=== PATIENT | male | born 1970 | race Hispanic/Latino ===

== ENCOUNTER 2018-05-16 10:51 | Day surgery (SDC) | payer MEDICARE, MEDICAID, SELFPAY ==
[2018-05-16] VITALS (8 sets, daily range): BP systolic 85–133; BP diastolic 53–80; PULSE 65–74; RESP 16; TEMP 36.1–36.9; O2SAT 62–99; BMI 32.2
[2018-05-16] MEDS: Cefazolin 2 GM in 0.9% Normal Saline 100 ML IV (13:23)
[2018-05-16] MEDS: Bupivacaine Mpf 0.5% 30 ML VIAL (13:40)
--- NOTE | 2018-05-16 14:15 | RAD_ITS ---
STUDY: X-RAY - LUMBAR SPINE REASON FOR EXAM: Male, 47 years old. Spinal cord stimulator placement. TECHNIQUE: 12 coned-down view(s) of the lumbar spine were obtained for spinal cord placement. 4 minutes and 6 seconds of fluoroscopy. COMPARISON: None FINDINGS: Intraoperative imaging provided for spinal cord stimulator placement. RAD/Lumbar Spine 2 or 3 Views IMPRESSION: Intraoperative fluoroscopic services provided for spinal cord stimulator placement. Electronically Signed: Morgan Trujillo MD at 15:57 EDT Tel [phone], Service support ,
[2018-05-16] MEDS: Bacitracin 500 UNITS/GM PACKET (15:11)
--- NOTE | 2018-05-16 15:52 | PCM.OPRPT ---
Problem List (1) Degeneration of intervertebral disc of lumbosacral region Status: Chronic (2) Radiculopathy of lumbosacral region Status: Chronic (3) Spinal stenosis of lumbosacral region Status: Chronic (4) Pain, postoperative, chronic Status: Chronic Report of Operation Date of Procedure: 05/16/18 Pre-Operative Diagnosis: Lumbosacral radiculopathy, lumbosacral degenerative disc disease, lumbosacral spinal stenosis, chronic postoperative pain Post-Operative Diagnosis: Lumbosacral radiculopathy, lumbosacral degenerative disc disease, lumbosacral spinal stenosis, chronic postoperative pain Surgery/Procedure Performed:: 1. Spinal cord stimulator thoracolumbar leads placement x2 #2 spinal cord stimulator Medtronic entellus generator placement #3 spinal cord stimulator generator pocket creation at the left gluteal region #4 spinal cord stimulator simple programming Description of Surgical Findings:: PROCEDURES: 1. Spinal cord stimulator thoracolumbar leads placement x2 #2 spinal cord stimulator Medtronic intellus generator placement #3 spinal cord stimulator generator pocket creation at the left gluteal region #4 spinal cord stimulator simple programming PREOPERATIVE DIAGNOSES: Lumbosacral radiculopathy, lumbosacral degenerative disc disease, lumbosacral spinal stenosis, chronic postoperative pain POSTOPERATIVE DIAGNOSES: Lumbosacral radiculopathy, lumbosacral degenerative disc disease, lumbosacral spinal stenosis, chronic postoperative pain ANESTHESIA: MAC COMPLICATIONS: None BLOOD LOSS: Minimal Implanted device: Spinal cord stimulator lead [id number] lot number [id number], lead #2 lot number [id number], Medtronic spinal cord stimulator generator intellus serial number [id number] PROCEDURE IN DETAIL: History and physical today was reviewed. Risks and benefits of procedure explained. The patient understood, agreed to procedure, informed consent was obtained. IV inserted per routine protocol. The patient was taken to the operating room, placed in the prone position with a pillow positioned underneath the abdomen. A 2 g of Ancef IV piggyback was infused per anesthesia. The lower back and left gluteal area was prepped and draped in a sterile fashion using iodine x3. The C-arm was brought in position for AP view at the L3-4 vertebral bodies under direct visualization fluoroscopy on a true AP view the L3-4 interlaminar space was identified skin and subcutaneous tissue and size approximately 10 cc of a mix of 2% lidocaine and 0.25% Marcaine using a 25-gauge regular needle followed by a 25-gauge 3-1/2 inch spinal needle towards the interlaminar space at L3-4, the skin and subcutaneous tissue were then anesthetized and using an 11-gauge blade was then taken down to the skin and subcutaneous tissue using a 14-gauge 3-1/2 inch Touhy needle provided by the [employer] kit the needle was passed through the skin towards the interlaminar space at L3-4 and a paramedian approach the needle was then advanced under direct visualization fluoroscopy towards the interlaminar space at L3-4 [id number] technique was then carried to air towards the interlaminar space at L3-4 once the tip of the needle was in the epidural space and loss of resistance was encountered to air and after confirmation of AP as well as oblique view of the spinal cord stimulator lead was then advanced under direct visualization fluoroscopy to be at the tip of the lead at T8 and the bottom of the lead around mid T10 after confirmation of AP as well as lateral view to confirm correct placement of the lead in the posterior compartment of the epidural space the previous procedure was then repeated to a level above at L2-3 interlaminar space the second lead was then inserted under direct visualization with fluoroscopy to be at the mid T9 and mid T11 area the leads were were then connected to the external neurostimulator and patient was then awakened to confirm satisfactory coverage of the painful area once satisfactory coverage was then achieved the stylette of each needle was then removed and the skin and subcutaneous tissue on to the left of the paramedian needles was then taken anesthetized with a total of 10 cc of the previous mixture of 0.25% Marcaine and 2% lidocaine using a 25-gauge regular needle the incision was then taken down through the skin and subcutaneous tissue towards the fascia making sure hemostasis was then maintained via cautery the spinal cord stimulator leads were then passed through the above incision and secured using the bitewing and sutured down with a 2-0 nylon to the fascia at that level the spinal cord stimulator leads were then tunneled via a tunneler provided by the [employer] kit towards the previously incised spinal cord stimulator battery at the left gluteal region skin and subcutaneous tissue were anesthetized with approximately 10 cc of a mix of 2% lidocaine and 0.25% Marcaine using a 25 gauge regular needle, skin and subcutaneous tissue was then taken down with the 11-gauge blade hemostasis was maintained with Bovie and direct pressure the incision was then taken down to the fascia and the battery was then visualized the 2-0 nylon sutures that were the spinal cord stimulator leads the upper lead was then marked the new until spinal cord stimulator battery was then provided Via [employer] kit the battery was then reattached of the spinal cord stimulator make ensure that the top lead is attached to the top position from 0-7 electrodes and the bottom from 8-15 electrodes once impedance was then checked to be in the proper average number the intellus battery was then inserted into the pocket and impedance with when checked again the pocket was then inspected to confirm hemostasis in place, the entellus battery was then secured to the fascia using a 2-0 nylon to the upper and lower eyes of the battery confirming an upward writing of the intellus facing posterior, once complete confirmation the battery was then placed in the position and the the mid paramedian and the gluteal incisions were then closed primarily through a 3-0 Vicryl in a running fashion followed by a 4-0 Vicryl to the skin, hemostasis was then maintained during the procedure the skin was then covered with a Steri-Strips and bacitracin patient was then returned into the supine position in a stable condition and returned to recovery in a stable condition patient experienced no sinus symptoms of intrathecal or intravascular injection patient experienced no paresthesia the procedure was completed without any apparent difficulty any complication the patient appeared to tolerate well ESTIMATED BLOOD LOSS: Minimal less than 25 mL ASSESSMENT AND PLAN: This is a 47-year-old male with lumbosacral radiculopathy lumbosacral degenerative disc disease lumbosacral spinal stenosis, chronic postoperative pain status post1. Spinal cord stimulator thoracolumbar leads placement x2 #2 spinal cord stimulator Medtronic intellus generator placement #3 spinal cord stimulator generator pocket creation at the left gluteal region #4 spinal cord stimulator simple programming patient will continue his current medications a prescription was provided to the patient for Percocet 5/325 1 p.o. every 6 hours as needed acute postoperative pain and Keflex 500 mg 1 p.o. every 8 hours for 7 days postop instruction were given in writing to the patient as well as verbally and in writing to his patient will follow approximately 1 week for reevaluation
--- NOTE | 2018-05-16 16:16 | OP.PCM_ITS ---
Problem List (1) Degeneration of intervertebral disc of lumbosacral region Status: Chronic (2) Radiculopathy of lumbosacral region Status: Chronic (3) Spinal stenosis of lumbosacral region Status: Chronic (4) Pain, postoperative, chronic Status: Chronic Report of Operation Date of Procedure: 05/16/18 Pre-Operative Diagnosis: Lumbosacral radiculopathy, lumbosacral degenerative disc disease, lumbosacral spinal stenosis, chronic postoperative pain Post-Operative Diagnosis: Lumbosacral radiculopathy, lumbosacral degenerative disc disease, lumbosacral spinal stenosis, chronic postoperative pain Surgery/Procedure Performed:: 1. Spinal cord stimulator thoracolumbar leads placement x2 #2 spinal cord stimulator Medtronic entellus generator placement #3 spinal cord stimulator generator pocket creation at the left gluteal region #4 spinal cord stimulator simple programming Description of Surgical Findings:: PROCEDURES: 1. Spinal cord stimulator thoracolumbar leads placement x2 #2 spinal cord stimulator Medtronic intellus generator placement #3 spinal cord stimulator generator pocket creation at the left gluteal region #4 spinal cord stimulator simple programming PREOPERATIVE DIAGNOSES: Lumbosacral radiculopathy, lumbosacral degenerative disc disease, lumbosacral spinal stenosis, chronic postoperative pain POSTOPERATIVE DIAGNOSES: Lumbosacral radiculopathy, lumbosacral degenerative disc disease, lumbosacral spinal stenosis, chronic postoperative pain ANESTHESIA: MAC COMPLICATIONS: None BLOOD LOSS: Minimal Implanted device: Spinal cord stimulator lead [id number] lot number [id number], lead #2 lot number [id number], Medtronic spinal cord stimulator generator intellus serial number [id number] PROCEDURE IN DETAIL: History and physical today was reviewed. Risks and benefits of procedure explained. The patient understood, agreed to procedure, informed consent was obtained. IV inserted per routine protocol. The patient was taken to the operating room, placed in the prone position with a pillow positioned underneath the abdomen. A 2 g of Ancef IV piggyback was infused per anesthesia. The lower back and left gluteal area was prepped and draped in a sterile fashion using iodine x3. The C-arm was brought in position for AP view at the L3-4 vertebral bodies under direct visualization fluoroscopy on a true AP view the L3-4 interlaminar space was identified skin and subcutaneous tissue and size approximately 10 cc of a mix of 2% lidocaine and 0.25% Marcaine using a 25- gauge regular needle followed by a 25-gauge 3-1/2 inch spinal needle towards the interlaminar space at L3-4, the skin and subcutaneous tissue were then anesthetized and using an 11-gauge blade was then taken down to the skin and subcutaneous tissue using a 14-gauge 3-1/2 inch Touhy needle provided by the [employer] kit the needle was passed through the skin towards the interlaminar space at L3-4 and a paramedian approach the needle was then advanced under direct visualization fluoroscopy towards the interlaminar space at L3-4 [id number] technique was then carried to air towards the interlaminar space at L3-4 once the tip of the needle was in the epidural space and loss of resistance was encountered to air and after confirmation of AP as well as obliq ue view of the spinal cord stimulator lead was then advanced under direct visualization fluoroscopy to be at the tip of the lead at T8 and the bottom of the lead around mid T10 after confirmation of AP as well as lateral view to confirm correct placement of the lead in the posterior compartment of the epidural space the previous procedure was then repeated to a level above at L2-3 interlaminar space the second lead was then inserted under direct visualization with fluoroscopy to be at the mid T9 and mid T11 area the leads were were then connected to the external neurostimulator and patient was then awakened to confirm satisfactory coverage of the painful area once satisfactory coverage was then achieved the stylette of each needle was then removed and the skin and subcutaneous tissue on to the left of the paramedian needles was then taken anesthetized with a total of 10 cc of the previous mixture of 0.25% Marcaine and 2% lidocaine using a 25-gauge regular needle the incision was then taken down through the skin and subcutaneous tissue towards the fascia making sure hemostasis was then maintained via cautery the spinal cord stimulator leads were then passed through the above incision and secured using the bitewing and sutured down with a 2-0 nylon to the fascia at that level the spinal cord stimulator leads were then tunneled via a tunneler provided by the [employer] kit towards the previously incised spinal cord stimulator battery at the left gluteal region skin and subcutaneous tissue were anesthetized with approximately 10 cc of a mix of 2% lidocaine and 0.25% Marcaine using a 25 gauge regular needle, skin and subcutaneous tissue was then taken down with the 11-gauge blade hemostasis was maintained with Bovie and direct pressure the incision was then taken down to the fascia and the battery was then visualized the 2-0 nylon sutures that were the spinal cord stimulator leads the upper lead was then marked the new until spinal cord stimulator battery was then provided Via [employer] kit the battery was then reattached of the spinal cord stimulator make ensure that the top lead is attached to the top position from 0-7 electrodes and the bottom from 8-15 electrodes once impedance was then checked to be in the proper average number the intellus battery was then inserted into the pocket and impedance with when checked again the pocket was then inspected to confirm hemostasis in place, the entellus battery was then secured to the fascia using a 2-0 nylon to the upper and lower eyes of the battery confirming an upward writing of the intellus facing posterior, once complete confirmation the battery was then placed in the position and the the mid paramedian and the gluteal incisions were then closed primarily through a 3-0 Vicryl in a running fashion followed by a 4-0 Vicryl to the skin, hemostasis was then maintained during the procedure the skin was then covered with a Steri-Strips and bacitracin patient was then returned into the supine position in a stable condition and returned to recovery in a stable condition patient experienced no sinus symptoms of intrathecal or intravascular injection patient experienced no paresthesia the procedure was completed without any apparent difficulty any complication the patient appeared to tolerate well ESTIMATED BLOOD LOSS: Minimal less than 25 mL ASSESSMENT AND PLAN: This is a 47-year-old male with lumbosacral radiculopathy lumbosacral degenerative disc disease lumbosacral spinal stenosis, chronic postoperative pain status post1. Spinal cord stimulator thoracolumbar leads placement x2 #2 spinal cord stimulator Medtronic intellus generator placement #3 spinal cord stimulator generator pocket creation at the left gluteal region #4 spinal cord stimulator simple programming patient will continue his current medications a prescription was provided to the patient for Percocet 5/325 1 p.o. every 6 hours as needed acute postoperative pain and Keflex 500 mg 1 p.o. every 8 hours for 7 days postop instruction were given in writing to the patient as well as verbally and in writing to his patient will follow approximately 1 week for reevaluation
== END 2018-05-16 17:10 | disposition home or self-care (01) ==
LOC: SDC 10:53 → AC 12:25
PROVIDERS: Family Provider Internal Medicine; PCP Internal Medicine; Referring Provider Anesthesiology Pain Medicine; Visit Provider Anesthesiology Pain Medicine
PROC: (CPT 63685; principal; 2018-05-16 14:05)
DX: G89.28 Other chronic postprocedural pain (principal); M51.17 Intervertebral disc disorders with radiculopathy, lumbosacral region; M48.07 Spinal stenosis, lumbosacral region; I10 Essential (primary) hypertension; I42.9 Cardiomyopathy, unspecified; J45.909 Unspecified asthma, uncomplicated; G47.30 Sleep apnea, unspecified; K44.9 Diaphragmatic hernia without obstruction or gangrene; K21.9 Gastro-esophageal reflux disease without esophagitis; E78.00 Pure hypercholesterolemia, unspecified; Z86.73 Personal history of transient ischemic attack (TIA), and cerebral infarction without residual deficits; Z86.718 Personal history of other venous thrombosis and embolism; Z79.899 Other long term (current) drug therapy; Z87.891 Personal history of nicotine dependence
CPT/HCPCS: 01992; 63650 ×2; 63685; 95971; 72100; 76000; J7120; J2405; J3490

== ENCOUNTER 2019-07-11 11:30 | Outpatient (RCR) | payer MEDICARE, MEDICAID, SELFPAY ==
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
--- NOTE | 2019-11-14 09:11 | HP.PT.NRP ---
LETY HERNANDEZ was seen in my office for initial evaluation on 06/09/19. The following Plan of Care was established for this patient: Initial Frequency: 2x /Week Initial Duration: 4 Weeks Patient/Client Instruction: Educate patient on: Condition, Plan of Care For the Purpose of:: To decrease pain, To increase ROM, To improve muscle performance and motor function, To increase tolerance to activity/condition/position, To improve performance and independence with ADL's, To improve ability of physical actions for home/community/work/leisure, To improve gait and locomotor functions, To increase flexibility/ROM, To improve endurance, To improve balance, To improve ability to perform tasks related to life management Therapeutic Exercise to Include: Strength training, Endurance training, Balance training, Body mechanics, Postural training, Flexibilty training, In an aquatic setting, Passive ROM, Active ROM For the Purpose of:: To decrease pain, To increase ROM, To improve muscle performance and motor function, To increase tolerance to activity/condition/position, To improve ability of physical actions for home/community/work/leisure, To improve health of tissue, To decrease soft tissue restriction, To increase flexibility/ROM, To improve ability to perform tasks related to life management This patient was last seen in our office 07/11/19. Pertinent comments regarding their Physical therapy will appear below: Patient was seen for PT for Aquatic PT for lumbar ROM/strengthening,postural ex's,LE flexablity,thus is d/c At this point I will be discontinuing this patient from physical therapy. I would be happy to see this patient again in the future if found appropriate by the physician. Thank you! Washington Galvez, PT, Cert MDT, OCS
== END 2019-07-11 19:00 | disposition home or self-care (01) ==
LOC: PT 11:30
PROVIDERS: Family Provider Internal Medicine; PCP Internal Medicine; Referring Provider Nurse Practitioner Family; Visit Provider Nurse Practitioner Family
DX: M48.061 Spinal stenosis, lumbar region without neurogenic claudication (principal); M16.52 Unilateral post-traumatic osteoarthritis, left hip; M54.17 Radiculopathy, lumbosacral region
CPT/HCPCS: 97113; 97163

== ENCOUNTER → 2019-08-01 06:44 | Outpatient (CLI) | payer MEDICARE, MEDICAID, SELFPAY ==
--- NOTE | 2019-08-01 13:58 | STRESSREP ---
Stress Test Report Date: 08-01-19 Procedure: Pharmacologic stress nuclear imaging study Indications: Chest pain; cardiomyopathy Consent: Per the patient Procedure: The patient underwent pharmacologic (Regadenoson) evaluation with a peak heart rate of 109 beats per minute (63 %predicted maximal heart rate) and a peak blood pressure of 168/100 mmHg. The baseline ECG demonstrated normal sinus rhythm; right bundle branch block pattern. The peak pharmacologic ECG demonstrated continued right bundle branch block pattern. There were no cardiac dysrhythmias pretest, during pharmacologic infusion, or recovery. There was no complaint of chest discomfort during pharmacologic infusion or recovery. The examination was discontinued secondary to completion of protocol. Impression: 1. Pharmacologic (Regadenoson) evaluation 2. Peak pharmacologic ECG with a continued right bundle branch block pattern. 3. There were no cardiac dysrhythmias pretest, during pharmacologic infusion, or recovery. 4. Nuclear images pending Myocardial perfusion imaging study: Technique: The patient was injected with 10.0 millicuries of technetium 99m Cardiolite and subsequently rest SPECT Cardiolite nuclear imaging was obtained in the horizontal long, vertical long, and short axis views. The patient underwent pharmacologic (Regadenoson) evaluation with a peak heart rate of 109 beats per minute (63 % percent predicted maximal heart rate) and a peak blood pressure of 168/100 mmHg. The patient was injected with 30.0 millicuries of technetium 99m Cardiolite and subsequently stress SPECT Cardiolite nuclear imaging was obtained in the horizontal long, vertical long, and short axis views. A gated Cardiolite study at peak stress was obtained. Interpretation: Rest and stress SPECT Cardiolite nuclear imaging status post realignment, normalization, and attenuation correction demonstrate rest relative uniform tracer uptake. Status post stress there is an area of diminished tracer uptake in portions of the inferior apical segments. There is end systolic thickening and brightening. The gated Cardiolite study demonstrates myocardial thickening and inward wall motion. The reported LVEF is 75 %. Impression: 1. Rest and stress SPECT current nuclear imaging demonstrate status post dress and area of diminished tracer uptake in portions of the inferior apical segments potentially compatible with an area of stress-induced myocardial ischemia. 2. The gated Cardiolite study reports an LVEF of 75 %. This note was generated with [employer] software. It may contain incorrect words, spelling, and punctuation that were not noted in checking the note before signing.
== END ==
PROVIDERS: Family Provider Internal Medicine; PCP Internal Medicine; Referring Provider Internal Medicine; Visit Provider Internal Medicine
DX: R07.9 Chest pain, unspecified (principal); I45.10 Unspecified right bundle-branch block
CPT/HCPCS: 78452; 93017; A9500; A4216; J2785

== ENCOUNTER → 2021-02-27 15:08 | Outpatient (CLI) | payer MEDICARE, MEDICAID, SELFPAY ==
--- NOTE | 2021-02-27 15:11 | VDLE_ITS ---
Reason For Study: pain/swelling Procedure LEFT This is a venous duplex using B-mode, color GSV is normal. flow and spectral Doppler. CFV is compressible, spontaneous, phasic, Exam performed in department. competent, and demonstrates normal The exam was diagnostic. augmentation. A preliminary report was called and/or faxed FV is compressible, spontaneous, phasic, to Ema Sapp @ [phone] @ 3:30 pm. competent and demonstrates normal augmentation. POP V is compressible, spontaneous, phasic, competent and demonstrates normal augmentation. T/P Trunk is compressible. PTV is compressible. LT PerV is compressible. VL/Venous Duplex US, Unilateral Interpretation Summary There is no evidence of left lower extremity deep vein thrombosis. Left great s aphenous vein appears patent and compressible segmentally. Ordering Physician: Ema Sapp Referring Physician: Olive Ridley Performed By: Livia Jay RVT, RDCS and Student
== END ==
PROVIDERS: PCP Internal Medicine; Referring Provider Nurse Practitioner Family; Visit Provider Nurse Practitioner Family
DX: M79.605 Pain in left leg (principal); M79.89 Other specified soft tissue disorders; Z86.718 Personal history of other venous thrombosis and embolism
CPT/HCPCS: 93971

== ENCOUNTER 2021-10-28 11:51 | Outpatient (CLI) | payer MEDICARE, SELFPAY ==
[2021-10-28 12:54] LABS: Erythrocyte Sedimentation Rate 4 mm/hr (0-20)
[2021-10-28 12:56] LABS: Absolute Lymphocyte Count 0.74 X10^3/uL (0.83-4.51); Absolute Neutrophil Count 6.8 X10^3/uL (2.0-7.7); Basophil# 0.02 X10^3/uL; Basophil% 0.2 % (0-1); Eosinophil# 0.01 X10^3/uL; Eosinophils% 0.1 % (0-5); Hemoglobin 17.5 g/dL (13.0-16.5); Lymphocyte # 0.74 X10^3/ul (0.83-4.51); Lymphocyte % 8.9 % (19-41); Mean Corp Hgb Conc 33.7 g/dL (32-36); Mean Corpuscular Hgb 31.2 pg (27.0-32.0); Mean Corpuscular Volume 92.7 fL (80-94); Mean Platelet Vol. 8.3 fl (6.2-12.0); Monocyte# 0.68 X10^3/uL; Monocyte% 8.2 % (0-10); NRBC Flagged by Analyzer 0 % (0-5); Neutrophil # 6.78 X10^3/uL (2.7-7.7); Neutrophil % 82.1 % (47-70); Platelet Count 279 K/mm3 (150-450); RBC Distribution Width CV 15.5 % (11.6-14.6); Red Blood Count 5.61 M/mm3 (4.6-6.2); White Blood Count 8.3 K/mm3 (4.4-11.0)
[2021-10-28 13:11] LABS: Prothrombin Time (Protime)PT. 30.2 SECONDS (11.7-14.9)
[2021-10-28 13:39] LABS: ALB/GLOB Ratio 1.3 RATIO (0.9-2.4); AST(SGOT) 15 U/L (15-37); Alanine Aminotransfer ALT/SGPT 40 U/L (16-61); Albumin, Serum 3.8 g/dL (3.2-5.0); Alkaline Phosphatase 72 U/L (45-117); Anion Gap 4 (5-15); BUN 14 mg/dL (7-18); BUN/Creat Ratio 15.4 RATIO (10-20); Bilirubin, Direct 0.17 mg/dL (0.00-0.30); CRP < 2.90 mg/L (0.0-3.0); Calcium,Total 8.9 mg/dL (8.5-10.1); Chloride 102 mmol/L (98-107); Creatinine, Serum 0.91 mg/dL (0.70-1.30); EST Glomerular Filtration Rate 93 mL/min (>60); Est Glom Filt Rate - Afr Amer 113 mL/min (>60); Glucose 131 mg/dL (74-106); LDH 237 U/L (87-241); Potassium 3.5 mmol/L (3.5-5.1); Protein, Total 6.8 g/dL (6.4-8.2); Sodium Level 136 mmol/L (136-145)
[2021-10-29 13:08] LABS: Anti-Centromere B Ab <0.2 AI (0.0-0.9); Anti-Chromatin <0.2 AI (0.0-0.9); Anti-Jo <0.2 AI (0.0-0.9); Anti-Scleroderma-70 AB <0.2 AI (0.0-0.9); RNP Ab <0.2 AI (0.0-0.9); SJOGREN'S Anti-SS-A test < 0.2 AI (0.0-0.9); SJOGREN'S Anti-SS-B test < 0.2 AI (0.0-0.9); Smith Ab <0.2 AI (0.0-0.9)
[2021-10-29 16:13] LABS: Anti-dsDNA Ab 1 IU/mL (0-9); Carbohydrate Ag 19-9 2261 10 U/mL (0-35)
== END 2021-10-28 23:59 | disposition home or self-care (01) ==
LOC: LAB 11:55
PROVIDERS: PCP Internal Medicine; Referring Provider Nurse Practitioner Adult Health; Visit Provider Nurse Practitioner Adult Health
DX: K76.0 Fatty (change of) liver, not elsewhere classified (principal); M51.37 Other intervertebral disc degeneration, lumbosacral region; K85.90 Acute pancreatitis without necrosis or infection, unspecified; K86.9 Disease of pancreas, unspecified; Z80.0 Family history of malignant neoplasm of digestive organs
CPT/HCPCS: 36415; 80053; 82248; 83615; 85025; 85610; 85652; 86140; 86225; 86235; 86301

== ENCOUNTER 2021-10-29 10:20 | Outpatient (CLI) | payer MEDICARE, SELFPAY | END 2021-10-29 23:59 | disposition home or self-care (01) | PROVIDERS: PCP Internal Medicine; Visit Provider Nurse Practitioner Adult Health | DX: K86.9 Disease of pancreas, unspecified (principal); K85.90 Acute pancreatitis without necrosis or infection, unspecified; Z80.9 Family history of malignant neoplasm, unspecified | CPT/HCPCS: 82705 ==

== ENCOUNTER → 2021-12-18 | Outpatient (CLI) | payer MEDICARE, MEDICAID, SELFPAY ==
--- NOTE | 2021-12-18 06:45 | MRI_ITS ---
STUDY: MR MRCP WITHOUT CONTRAST REASON FOR EXAM: Male, 51 years old. recurrent pancreatitis TECHNIQUE: Standard MRCP technique was utilized. 3-D postprocessing images were reviewed. COMPARISON: None. FINDINGS: Gall Bladder: Normal with no distention or demonstrated fixed intraluminal filling defect. Cystic duct: Normal with no demonstrated fixed filling defect. Intrahepatic ducts: Normal visualized intrahepatic ducts with no demonstrated fixed filling defect, dilation or stricture. Common hepatic duct: Normal with no demonstrated fixed filling defect, dilation or stricture. Common bile duct: Normal with no demonstrated fixed filling defect, dilation or stricture. Pancreatic duct: Normal with no demonstrated fixed filling defect, dilation or stricture. MRI/MRCP Abdomen without Contrast IMPRESSION: Normal MR Cholangiopancreatography (MRCP). Electronically Signed: Pola Mast MD at 16:31 EDT ,
== END | disposition home or self-care (01) ==
LOC: MRI 06:45
PROVIDERS: PCP Internal Medicine; Referring Provider Nurse Practitioner Adult Health; Visit Provider Nurse Practitioner Adult Health
DX: K85.90 Acute pancreatitis without necrosis or infection, unspecified (principal)
CPT/HCPCS: 74181

== ENCOUNTER → 2021-12-26 | Outpatient (CLI) | payer MEDICARE, MEDICAID, SELFPAY ==
--- NOTE | 2021-12-26 09:10 | US_ITS ---
STUDY: ABDOMINAL ULTRASOUND - ELASTOGRAPHY REASON FOR VISIT: Male, 51 years old. Fatty obstruction of the liver. TECHNIQUE: Liver stiffness measurements were obtained on a Prylos RS 85 ultrasound machine using a CA 1-7 probe following the SRU guidelines. 3 measurements were obtained using a 2-D-SWE method. The IQR/M was 14% suggesting a quality data set. TECHNICAL QUALITY: Adequate. COMPARISON: Comparison is made with prior study done earlier today. FINDINGS: Liver: Fatty infiltration of the liver. Median liver stiffness measured 10 kPa. US/Elastography Parenchyma/Organ IMPRESSION: Liver stiffness measures 10 kPa compatible with F2-F3 (Mild to moderate liver fibrosis) Metavir score. Electronically Signed: Morgan Trujillo MD at 12:18 EDT ,
--- NOTE | 2021-12-26 09:33 | US_ITS ---
STUDY: ABDOMINAL ULTRASOUND - RIGHT UPPER QUADRANT REASON FOR VISIT: Male, 51 years old FATTY CHANGE OF LIVER TECHNIQUE: Ultrasound evaluation of the right upper quadrant was performed with real-time and static lee-scale imaging. TECHNICAL QUALITY: Adequate. COMPARISON: None. FINDINGS: Liver: The liver measures 16.8 cm. There is increased echogenicity consistent with fatty infiltration. Focal fatty sparing is seen adjacent to the gallbladder fossa. The bile ducts are within normal limits. There is hepatic color flow. The direction of portal flow is hepatopetal. There is no demonstrated mass lesion. Gallbladder: Normal distended gallbladder. The gallbladder wall measures 1.4 mm. There is a negative sonographic Renner''s sign. There is no pericholecystic fluid. There are no gallstones. A small amount of sludge is seen in the gallbladder lumen. Common Bile Duct (C.B.D.): The common bile duct measures 5.5 mm. Pancreas: Normal size of the head, body and tail of the pancreas. There is normal echogenicity of the pancreas. There is no demonstrated pancreatic mass or cyst. Right Kidney: Normal size of the right kidney. The right kidney measures 11.5 cm x 5.3 cm x 5.5 cm. Normal renal cortex. The right cortex measures 1.8 cm. There is no demonstrated renal mass or cyst. There is no right hydronephrosis. US/Liver IMPRESSION: Fatty infiltration of the liver with focal fatty sparing in the region of the gallbladder fossa. Electronically Signed: Morgan Trujillo MD at 12:16 EDT ,
== END | disposition home or self-care (01) ==
LOC: US 09:09
PROVIDERS: PCP Internal Medicine; Referring Provider Nurse Practitioner Adult Health; Visit Provider Nurse Practitioner Adult Health
DX: K76.0 Fatty (change of) liver, not elsewhere classified (principal)
CPT/HCPCS: 76705; 76981

== ENCOUNTER → 2022-02-19 | Outpatient (CLI) | payer MEDICARE, MEDICAID, SELFPAY ==
--- NOTE | 2022-02-19 10:08 | NM_ITS ---
EXAM: NM HEPATOBILIARY SCAN CLINICAL INDICATION: ruq pain -- PANCREATITIS TECHNIQUE: Technetium 99m choletec was intravenously administered and static images were obtained. This report was created using [employer] report generation technology. COMPARISON: None. FINDINGS: LIVER: There is prompt uptake of radiopharmaceutical seen within the liver. There is no abnormal hyperemia along the gallbladder fossa. BILE DUCTS: There is mild biliary bowel activity seen by 1530 minutes. GALLBLADDER: There is activity within the gallbladder by 30 minutes. 1.9 mcg of CCK was administered with gallbladder ejection fraction measured at 10, 21 and 29 minutes. There is a 3% ejection fraction measured at 21 minutes. STOMACH AND BOWEL: See above. NM/Hepatobilliary Img w/Pharm Int IMPRESSION: 1. Normal hepatobiliary scan with no evidence of cholecystitis or common duct obstruction. 2. Abnormally low gallbladder ejection fraction 3% measured at 21 minutes compatible with severe gallbladder dyskinesia. Electronically Signed: Eleazar Shin MD at 12:19 EDT ,
== END | disposition home or self-care (01) ==
LOC: NM 10:08
PROVIDERS: PCP Internal Medicine; Referring Provider Nurse Practitioner Adult Health; Visit Provider Nurse Practitioner Adult Health
DX: R10.11 Right upper quadrant pain (principal); K85.90 Acute pancreatitis without necrosis or infection, unspecified; K82.8 Other specified diseases of gallbladder
CPT/HCPCS: 78227; A9537; A9541; J2805

== ENCOUNTER → 2022-05-28 | Outpatient (CLI) | payer MEDICARE, SELFPAY ==
[2022-05-28 16:58] LABS: Absolute Lymphocyte Count 1.19 X10^3/uL (0.83-4.51); Absolute Neutrophil Count 4.7 X10^3/uL (2.0-7.7); Basophil# 0.02 X10^3/uL; Basophil% 0.3 % (0-1); Eosinophil# 0.04 X10^3/uL; Eosinophils% 0.6 % (0-5); Hematocrit 47.5 % (40-54); Hemoglobin 15.7 g/dL (13.0-16.5); Lymphocyte # 1.19 X10^3/ul (0.83-4.51); Lymphocyte % 18.1 % (19-41); Mean Corp Hgb Conc 33.1 g/dL (32-36); Mean Corpuscular Hgb 30.2 pg (27.0-32.0); Mean Corpuscular Volume 91.3 fL (80-94); Mean Platelet Vol. 8.9 fl (6.2-12.0); Monocyte# 0.58 X10^3/uL; Monocyte% 8.8 % (0-10); NRBC Flagged by Analyzer 0 % (0-5); Neutrophil # 4.72 X10^3/uL (2.7-7.7); Neutrophil % 71.7 % (47-70); Platelet Count 289 K/mm3 (150-450); RBC Distribution Width CV 12.4 % (11.6-14.6); RBC Distribution Width SD 41.7 fl (35.1-43.9); White Blood Count 6.6 K/mm3 (4.4-11.0)
[2022-05-28 17:13] LABS: Erythrocyte Sedimentation Rate 6 mm/hr (0-20)
[2022-05-28 17:16] LABS: Prothrombin Time (Protime)PT. 12.7 SECONDS (11.7-14.9)
[2022-05-28 17:59] LABS: ALB/GLOB Ratio 1.1 RATIO (0.9-2.4); AST(SGOT) 12 U/L (15-37); Alanine Aminotransfer ALT/SGPT 22 U/L (16-61); Albumin, Serum 3.6 g/dL (3.2-5.0); Alkaline Phosphatase 108 U/L (45-117); Amylase 43 U/L (25-115); Anion Gap 8 (5-15); BUN 15 mg/dL (7-18); BUN/Creat Ratio 13.9 RATIO (10-20); CRP < 2.90 mg/L (0.0-3.0); Chloride 107 mmol/L (98-107); Creatinine, Serum 1.08 mg/dL (0.70-1.30); EST Glomerular Filtration Rate 76 mL/min (>60); Est Glom Filt Rate - Afr Amer 92 mL/min (>60); GGTP 22 U/L (15-85); Globulin 3.4 g/dL (2.2-4.2); Glucose 144 mg/dL (74-106); Lipase 136 U/L (73-393); Potassium 3.7 mmol/L (3.5-5.1); Sodium Level 141 mmol/L (136-145)
== END | disposition home or self-care (01) ==
LOC: LAB 16:25
PROVIDERS: Nurse Practitioner Adult Health; PCP Internal Medicine; Visit Provider Nurse Practitioner Gerontology
DX: R10.9 Unspecified abdominal pain (principal); K85.90 Acute pancreatitis without necrosis or infection, unspecified; K76.0 Fatty (change of) liver, not elsewhere classified; M51.37 Other intervertebral disc degeneration, lumbosacral region; K82.8 Other specified diseases of gallbladder
CPT/HCPCS: 36415; 80053; 82150; 82977; 83690; 85025; 85610; 85652; 86140

== ENCOUNTER 2022-06-17 07:28 | Day surgery (SDC) | payer MEDICARE, MEDICAID, SELFPAY ==
[2022-06-17] VITALS (7 sets, daily range): BP systolic 113–150; BP diastolic 69–87; PULSE 59–71; RESP 16–20; TEMP 36.1; O2SAT 91–98; BMI 34.2
[2022-06-17] MEDS: Lactated Ringers 1,000 ML 15 ML IV (07:50)
--- NOTE | 2022-06-17 07:55 | HP.PCM_ITS ---
History and Physical Date of Admission: 06/17/22 ?51 M who presents to the office today for sudden onset 2-3 weeks of nausea, dry heaves, epigastric pain along with a feeling of anxiety as well as depression. No prior anxiety or depression. He has had heart racing, no flushing. The pain has persisted, epigastric as well as RUQ, LUQ and mid left/LLQ. The pain radiates around both sides to his back. The nausea also continues, intermittent, no exacerbating factors. Has a bad taste in his mouth now too. Denies heartburn and acid reflux. On pantoprazole 40 mg daily. Bowels have slowed down, not having a daily BM, and having to strain. He had a couple of days of diarrhea last week. No melena or hematochezia. Stool has been drupal developer in color than normal. Several times he has had CP, across the anterior chest, lasted minutes, resolved spontaneously. Increased gas and burping. Feeling full, less hungry. We referred him to general surgery for evaluation of dyskinesia of gallbladder--Dr. Harvey recommended against surgical intervention for biliary dyskinesia due to prohibitive surgical risk NAFLD --he is on vitamin E and ursodiol.? Plan was to update INR at last visit to ensure the elevated result was in error.? Recurrent pancreatitis and Family history pancreatic cancer --CA 19-9 normal.? MRCP normal in December 2021 Evens established with our office on 10/28/2021 after having 2 episodes of acute pancreatitis. His first bout of acute pancreatitis was June 2021, it was attributed to elevated triglycerides of 963.? He went on fenofibrate after that and his triglycerides improved to normal.? Etiology is unknown for his second bout of acute pancreatitis in September 2021.? His abdomen was bloated, then he awoke in the night with abdominal pain and then nausea and vomiting.? Presented to the [facility] ED with severe abdominal pain.? At admission his lipase was 774, it was 78 at discharge.? Initial amylase was 169.? Maximum CRP was 9.2.? Triglycerides were 87 and total cholesterol 236, HDL 57, LDL 162. During the September 2021 hospitalization he had MRI that revealed 3 very small lesions in the pancreas that may be cysts versus IPMNs.? His father did from pancreatic cancer.? Patient's CA 19-9 was normal at 10 on 10/28/2021.? 12/18/21 MRCP normal. We tested for chronic pancreatitis and pancreatic insufficiency with fecal elastase and fecal fat.? Fecal elastase level was normal.? There was a computer glitch and fecal fats were not tested. CT 09/2021 revealed fatty liver; we obtained liver elastography to evaluate liver stiffness.? Liver measures 16.8 cm.? Liver stiffness measures 10 kPa compatible with F2 to F3 (mild to moderate liver fibrosis) Metavir score.? On 12/29/2021 we started him on ursodiol 300 mg twice daily and vitamin e 400 international units twice daily to treat NAFLD.? Other recommendations to treat fatty liver were weight management, glucose management, and triglycerides management. --CT chest abdomen pelvis with contrast in September 2021: Fatty changes of the liver, mild mucosal thickening and fluid in the small bowel consistent with enteritis --MRI with and without contrast September 2021: Fatty liver, small stone or polyp in the gallbladder, 2 small adjacent foci of T2 signal hyperintensity together measuring 0.6 x 0.3 cm in the head of the pancreas and a single small focus of T2 signal hyperintensity measuring 0.3 cm in the tail of the pancreas.? Radiology commented too small to differentiate between cysts versus IPMNs. He had EGD and colonoscopy in 2014 or 2016 he believes.? He recalls those were normal.? Prior to that he had EGD and colonoscopy in 2009 or 2010, he recalls multiple colon polyps.? He does not recall ever being diagnosed with Mata's esophagus. 10/28/2021 biochemical work-up: Hemoglobin 17.5, platelets 279, INR 3.0, CRP less than 2.9, normal bilirubin, normal AST, normal ALT, normal alk phos, normal LDH, normal CA 19-9, normal [facility] comprehensive 11/26/2021 triglycerides 203, cholesterol 249, HDL 46, LDL 162 12/02/2021 hepatic function panel all normal copy will be scanned into chart ROS Const Constitutional: Positive for fatigue and weight change ENT ENT: No difficulty swallowing Cardio Cardiology: Positive for leg pain with exertion Gastro GI: No abdominal pain, belching, bloating, change in bowel habits, change in stool character, coffee ground emesis, constipation, cramping, diarrhea, heartburn, difficulty swallowing, feeling full early, excessive flatus, incontinent of stools, Vomiting blood/hematemesis, Blood in stool, loose stools, Black,tarry stools, nausea/dyspepsia, pain with swallowing, vomiting or other Musc Musculoskeletal: Positive for joint pain, back pain, joint swelling, muscle cramps, muscle weakness, stiffness and leg pain with exertion Skin Skin: No yellowing of the eye or itchy eyes Psych Psychiatric: Positive for anxiety, Positive for depression and Positive for paranoia Endo Endocrine: Positive for fatigue and weight change Aller/Imm Allergy/Immunologic: No itchy eyes Osbaldo/Lymp Hematologic/Lymphatic: No easy bleeding or easy bruising Exam Const General: cooperative and no acute distress Orientation: alert, awake and oriented x3 HENMT Head: normal to inspection Eyes General: appearance normal, both eyes and all related structures Neck Neck: normal visual inspection, full ROM, no lymphadenopathy and supple Chest Chest palpation & inspection: normal inspection of the chest Resp Effort & Inspection: normal respiratory effort GI Palpation: soft, no hepatosplenomegaly, no masses and tender in the epigastrum Musc Other: Uses a cane Skin General: no jaundice Quality Reporting Tobacco Screening ([facility] 138) Smoking Status: Former smoker Assessment and Plan Assessment and Plan (1) Recurrent acute pancreatitis: ?Status:?Acute ?Plan: 51 yr old male with acute abdominal pain, hx of recurrent pancreatitis. Case discussed with Dr. Mejia.? We will get labs today including inflammatory markers, pancreatic labs although his symptoms began 2 to 3 weeks ago, CBC and CMP.? We will have him start on pancreatic enzymes, samples of Zenpep provided, take 1 with a drink or snack, take 2 with meals, we may need to increase the dose.? We will get him scheduled for EGD and colonoscopy. (2) Abdominal pain: ?Status:?Acute ?Plan: See above ? ? ? Orders: Orders Amylase Today K85.90 - Acute pancreatitis without necrosis or infection, unspecified, R10.9 - Unspecified abdominal pain ? Comprehensive Metabolic Profil Today K85.90 - Acute pancreatitis without necrosis or infection, unspecified, R10.9 - Unspecified abdominal pain ? CRP Today K85.90 - Acute pancreatitis without necrosis or infection, unspecified, R10.9 - Unspecified abdominal pain ? Lipase Today K85.90 - Acute pancreatitis without necrosis or infection, unspecified, R10.9 - Unspecified abdominal pain ? CBC W/Diff, Automated Today K85.90 - Acute pancreatitis without necrosis or infe ction, unspecified, M51.37 - Other intervertebral disc degeneration, lumbosacral region, R10.9 - Unspecified abdominal pain ? Erythrocyte Sed Rate Today K85.90 - Acute pancreatitis without necrosis or infection, unspecified, R10.9 - Unspecified abdominal pain ? Prothrombin Time w/INR Today K76.0 - Fatty (change of) liver, not elsewhere cl assified, K85.90 - Acute pancreatitis without necrosis or infection, unspecified, R10.9 - Unspecified abdominal pain ? GGTP Today K82.8 - Other specified diseases of gallbladder I have examined the patient and the H&P has been reviewed. There are no clinical changes since date of exam.
--- NOTE | 2022-06-17 08:30 | IMM_PTH ---
PATIENT: LETY SEGURA LOC: [facility] U#:[id number] AGE/SX: 51/M ROOM: RE06/17/[address]: Dr. Travis Mejia DO : 1970 BED: DIS: 06/17/2022 SPEC #: [id number] RECD: 06/18/22 10:34 STATUS: ADDY REMarco #: [id number] SHARMIN: 06/17/22 08:[address]: Travis Mejia DEPT: IMMUNOHISTOCHEMISTRY RECD BY: Ambika Patel ENTERED: 06/18/22 10:34 SP TYPE: IMMUNO OTHR DR: Dr. Olive Ridley MD Tissues: B - Stomach, NOS Procedures: H Pylori (initial) PHYSICIAN & INSTITUTION [place] [id number] SPECIMEN INFORMATION: Tissue Source: B ? Gastric antrum Clinical Info: Recurrent acute pancreatitis, abdominal pain Specimen Number: [id number] CPT code: 49398 METHODOLOGY: Deparaffinized sections of prefer/formalin-fixed tissue or PAP/DQ stained slides are incubated with monoclonal/polyclonal antibodies/oligonucleotide probes. Localization is made via biotin free immunoperoxidase method. Appropriate controls are performed and reacted as expected. Results on target cell population are indicated in the following table: RESULTS: ANTIBODY / CLONE RESULT Block B H Pylori (polyclonal) negative These tests were developed and their performance characteristics determined by [facility]. They may not have been cleared or approved by the U.S. Food and Drug Administration. The FDA has determined that such clearance or approval is not necessary. The above immunohistochemical/dualISH markers are ordered and reviewed by the Pathologist. INTERPRETATION: B. Gastric antrum, biopsy: Negative for Helicobacter pylori organisms. AM:carey 06/19/2022
--- NOTE | 2022-06-17 08:30 | EGD_PTH ---
PATIENT: LETY SEGURA LOC: [facility] U#:[id number] AGE/SX: 51/M ROOM: RE06/17/[address]: Dr. Travis Mejia DO : 1970 BED: DIS: 06/17/2022 SPEC #: [id number] RECD: 06/17/22 14:30 STATUS: ADDY VELASQUEZ #: [id number] SHARMIN: 06/17/22 08:[address]: Travis Mejia DEPT: SURGICAL PATHOLOGY RECD BY: Sally Lynn ENTERED: 06/18/22 08:54 SP TYPE: EGD BIOPSY TONYA DR: Dr. Olive Ridley MD Tissues: A - Duodenum, NOS B - Gastric mucous membrane C - Esophagus, NOS D - Ileum, NOS E - COLON BIOPSY Procedures: Surgery Specimen Level IV HEADER OPERATION: Colonoscopy, EGD ([facility]) PRE-OP DIAGNOSIS: Recurrent acute pancreatitis, abdominal pain TISSUE SUBMITTED: A ? Duodenum biopsy, B ? Gastric antrum biopsy for H. pylori and pain, C ? Random esophagus biopsy, D ? Terminal ileum biopsy, E ? Random colon biopsy MICROSCOPIC DIAGNOSIS A. Duodenum, biopsy: No pathologic change. B. Gastric antrum, biopsy: Mild chronic gastritis. See comment. C. Esophagus, random biopsy: No pathologic change. D. Terminal ileum, biopsy: No pathologic change. E. Colon, random biopsy: No pathologic change. AM:carey 06/19/2022 COMMENT B. The results of immunohistochemistry for Helicobacter pylori will be reported separately ([id number]). MICROSCOPIC DESCRIPTION Slides are reviewed. GROSS DESCRIPTION A - Received in fixative is one container labeled with the patient's name and designated duodenum biopsy. The specimen consists of one irregular fragment of light waggoner soft tissue that measures 0.5 x 0.5 x 0.1 cm. The specimen is totally submitted in one cassette. B - Received in fixative is one container labeled with the patient's name and designated gastric antrum. The specimen consists of two irregular fragments of light waggoner soft tissue that in aggregate measure 0.7 x 0.3 x 0.1 cm. The specimen is totally submitted in one cassette. C - Received in fixative is one container labeled with the patient's name and designated random esophagus. The specimen consists of multiple irregular fragments of light waggoner soft tissue that in aggregate measure 1 x 0.6 x 0.1 cm. The specimen is totally submitted in one cassette. D - Received in fixative is one container labeled with the patient's name and designated terminal ileum. The specimen consists of multiple irregular fragments of light waggoner soft tissue that in aggregate measure 1.2 x 0.3 x 0.1 cm. The specimen is totally submitted in one cassette. E - Received in fixative is one container labeled with the patient's name and designated random colon. The specimen consists of multiple irregular fragments of light waggoner soft tissue that in aggregate measure 1 x 0.7 x 0.1 cm. The specimen is totally submitted in one cassette. / AM:carey 06/18/2022 TC:3 CPT: 51409 x5
--- NOTE | 2022-06-17 09:36 | OP.CCLET_ITS ---
06/17/2022 Olive Ridley Re : Upper GI endoscopy procedure for Evens Sky Dear [place] This procedure was performed on Friday, June 17, 2022. My impressions and recommendations are as follows: Impressions : - Esophageal mucosal changes consistent with eosinophilic esophagitis. Biopsied. - Large hiatal hernia. - Gastritis. Biopsied. - Erythematous duodenopathy. Biopsied. Recommendations : - Discharge patient to home. - Resume previous diet. - Continue present medications. - Await pathology results. My findings are described in the full procedure note, which is enclosed. If I can be of further assistance, please feel free to contact me at . Sincerely, Travis Mejia, 06/17/2022 9:35:58 AM This report has been signed electronically.
--- NOTE | 2022-06-17 09:36 | OP.EGD_ITS ---
Patient Name: Evens Sky Procedure Date: 06/17/2022 8:51 AM Date of : 1970 Age: 51 Procedure: Upper GI endoscopy Indications: Epigastric abdominal pain, Functional Dyspepsia, Suspected esophageal reflux, Failure to respond to medical treatment Providers: Travis Mejia DO Medicines: Monitored Anesthesia Care Patient Profile: This is a 51 year old male. Refer to note in patient chart for documentation of history and physical. Patient has symptoms of chronic abdominal cramping, chronic abdominal distention, chronic epigastric abdominal pain and chronic dyspepsia. Complications: No immediate complications. Procedure: Pre-Anesthesia Assessment: - Prior to the procedure, a History and Physical was performed, and patient medications and allergies were reviewed. The patient is competent. The risks and benefits of the procedure and the sedation options and risks were discussed with the patient. All questions were answered and informed consent was obtained. Patient identification and proposed procedure were verified by the physician in the pre-procedure area. Mental Status Examination: alert and oriented. Airway Examination: normal oropharyngeal airway and neck mobility. Respiratory Examination: clear to auscultation. CV Examination: normal. Prophylactic Antibiotics: The patient does not require prophylactic antibiotics. Prior Anticoagulants: The patient has taken no previous anticoagulant or antiplatelet agents. ASA Grade Assessment: II - A patient with mild systemic disease. After reviewing the risks and benefits, the patient was deemed in satisfactory condition to undergo the procedure. The anesthesia plan was to use monitored anesthesia care (MAC). Immediately prior to administration of medications, the patient was re-assessed for adequacy to receive sedatives. The heart rate, respiratory rate, oxygen saturations, blood pressure, adequacy of pulmonary ventilation, and response to care were monitored throughout the procedure. The physical status of the patient was re-assessed after the procedure. After obtaining informed consent, the endoscope was passed under direct vision. Throughout the procedure, the patient's blood pressure, pulse, and oxygen saturations were monitored continuously. The Colonoscope was introduced through the mouth, and advanced to the second part of duodenum. The upper GI endoscopy was accomplished without difficulty. The patient tolerated the procedure well. Scope In: 9:02:40 AM Scope Out: 9:08:45 AM Total Procedure Duration Time 0 hours 6 minutes 5 seconds Findings: Mucosal changes including ringed esophagus and longitudinal furrows were found in the entire esophagus. Biopsies were obtained from the proximal and distal esophagus with cold forceps for histology of suspected eosinophilic esophagitis. Verification of patient identification for the specimen was done. Estimated blood loss was minimal. A large hiatal hernia was present. Localized mild inflammation characterized by erythema was found in the gastric antrum. Biopsies were taken with a cold forceps for histology. Verification of patient identification for the specimen was done. Estimated blood loss was minimal. Localized mildly erythematous mucosa without active bleeding and with no stigmata of bleeding was found in the second portion of the duodenum. Biopsies were taken with a cold forceps for histology. Verification of patient identification for the specimen was done. Estimated blood loss was minimal. A benign-appearing, intrinsic moderate stenosis was found at the pylorus. This was traversed. A guidewire was placed and the scope was withdrawn. Dilation was performed with a Savary dilator with no resistance at 42 Fr. Impression: - Esophageal mucosal changes consistent with eosinophilic esophagitis. Biopsied. - Large hiatal hernia. - Gastritis. Biopsied. - Erythematous duodenopathy. Biopsied. Recommendation: - Discharge patient to home. - Resume previous diet. - Continue present medications. - Await pathology results. Procedure Code(s): --- Professional --- 88128, Esophagogastroduodenoscopy, flexible, transoral; with dilation of gastric/duodenal stricture(s) (eg, balloon, bougie) 27167, 59,51, Esophagogastroduodenoscopy, flexible, transoral; with biopsy, single or multiple CPT copyright 2017 [employer]. All rights reserved. The codes documented in this report are preliminary and upon type copyist review may be revised to meet current compliance requirements. Travis Mejia DO 06/17/2022 9:35:58 AM This report has been signed electronically. Number of Addenda: 0 Note Initiated On: 06/17/2022 8:51 AM
--- NOTE | 2022-06-17 09:39 | OP.COLON_ITS ---
Patient Name: Evens Sky Procedure Date: 06/17/2022 9:09 AM Date of : 1970 Age: 51 Procedure: Colonoscopy Indications: Clinically significant diarrhea of unexplained origin Providers: Travis Mejia DO Medicines: Monitored Anesthesia Care Patient Profile: This is a 51 year old male. Refer to note in patient chart for documentation of history and physical. Patient has symptoms of chronic abdominal cramping, chronic abdominal distention, chronic epigastric abdominal pain and chronic dyspepsia. Last Colonoscopy: several years ago. Complications: No immediate complications. Procedure: Pre-Anesthesia Assessment: - Prior to the procedure, a History and Physical was performed, and patient medications and allergies were reviewed. The patient is competent. The risks and benefits of the procedure and the sedation options and risks were discussed with the patient. All questions were answered and informed consent was obtained. Patient identification and proposed procedure were verified by the physician in the pre-procedure area. Mental Status Examination: alert and oriented. Airway Examination: normal oropharyngeal airway and neck mobility. Respiratory Examination: clear to auscultation. CV Examination: normal. Prophylactic Antibiotics: The patient does not require prophylactic antibiotics. Prior Anticoagulants: The patient has taken no previous anticoagulant or antiplatelet agents. ASA Grade Assessment: II - A patient with mild systemic disease. After reviewing the risks and benefits, the patient was deemed in satisfactory condition to undergo the procedure. The anesthesia plan was to use monitored anesthesia care (MAC). Immediately prior to administration of medications, the patient was re-assessed for adequacy to receive sedatives. The heart rate, respiratory rate, oxygen saturations, blood pressure, adequacy of pulmonary ventilation, and response to care were monitored throughout the procedure. The physical status of the patient was re-assessed after the procedure. After I obtained informed consent, the scope was passed under direct vision. Throughout the procedure, the patient's blood pressure, pulse, and oxygen saturations were monitored continuously. The Colonoscope was introduced through the anus and advanced to the terminal ileum. The colonoscopy was performed without difficulty. The patient tolerated the procedure well. The quality of the bowel preparation was good. Scope In: 9:12:49 AM Scope Withdrawal Time 0 hours 10 minutes 12 seconds Scope Out: 9:26:52 AM Total Procedure Duration Time 0 hours 14 minutes 3 seconds Findings: The perianal and digital rectal examinations were normal. An area of mildly congested mucosa was found in the sigmoid colon, in the descending colon and in the ascending colon. Biopsies were taken with a cold forceps for histology. Verification of patient identification for the specimen was done. Estimated blood loss was minimal. A patchy area of the terminal ileum was congested. Biopsies were taken with a cold forceps for histology. Verification of patient identification for the specimen was done. Estimated blood loss was minimal. A few small-mouthed diverticula were found in the recto-sigmoid colon, sigmoid colon, ascending colon and cecum. Impression: - Congested mucosa in the sigmoid colon, in the descending colon and in the ascending colon. Biopsied. - Congested mucosa in the terminal ileum. Biopsied. - Diverticulosis in the recto-sigmoid colon, in the sigmoid colon, in the ascending colon and in the cecum. Recommendation: - Discharge patient to home. - Resume previous diet. - Continue present medications. - Await pathology results. - Repeat colonoscopy in 5 years for surveillance. Procedure Code(s): --- Professional --- 15269, Colonoscopy, flexible; with biopsy, single or multiple CPT copyright 2017 [employer]. All rights reserved. The codes documented in this report are preliminary and upon pot room supervisor review may be revised to meet current compliance requirements. Travis Mejia DO 06/17/2022 9:38:41 AM This report has been signed electronically. Number of Addenda: 0 Note Initiated On: 06/17/2022 9:09 AM
--- NOTE | 2022-06-17 09:39 | OP.CCLET_ITS ---
06/17/2022 [facility] Re : Colonoscopy procedure for Evens Sky Dear [place] This procedure was performed on Friday, June 17, 2022. My impressions and recommendations are as follows: Impressions : - Congested mucosa in the sigmoid colon, in the descending colon and in the ascending colon. Biopsied. - Congested mucosa in the terminal ileum. Biopsied. - Diverticulosis in the recto-sigmoid colon, in the sigmoid colon, in the ascending colon and in the cecum. Recommendations : - Discharge patient to home. - Resume previous diet. - Continue present medications. - Await pathology results. - Repeat colonoscopy in 5 years for surveillance. My findings are described in the full procedure note, which is enclosed. If I can be of further assistance, please feel free to contact me at . Sincerely, Travis Mejia, 06/17/2022 9:38:41 AM This report has been signed electronically.
== END 2022-06-17 10:40 | disposition home or self-care (01) ==
LOC: EN 07:33 → AC 07:33
PROVIDERS: PCP Internal Medicine; Referring Provider Internal Medicine; Visit Provider Internal Medicine Gastroenterology
PROC: 0DJD8ZZ Inspection of Lower Intestinal Tract, Via Natural or Artificial Opening Endoscopic (ICD-10-PCS; CPT 45378; principal; 2022-06-17 08:25)
DX: K22.2 Esophageal obstruction (principal); K86.1 Other chronic pancreatitis; K85.90 Acute pancreatitis without necrosis or infection, unspecified; K57.30 Diverticulosis of large intestine without perforation or abscess without bleeding; K76.0 Fatty (change of) liver, not elsewhere classified; K44.9 Diaphragmatic hernia without obstruction or gangrene; R19.7 Diarrhea, unspecified; K29.70 Gastritis, unspecified, without bleeding; K63.89 Other specified diseases of intestine; Z87.891 Personal history of nicotine dependence; K82.8 Other specified diseases of gallbladder
CPT/HCPCS: 45380; 43239; 43248; 88305; 88342; J7120; J2405

== ENCOUNTER → 2022-09-05 | Outpatient (CLI) | payer MEDICARE, MEDICAID, SELFPAY ==
--- NOTE | 2022-09-05 14:11 | MRI_ITS ---
INDICATION: eval IPMNs, hx pancreatitis, FH pancreatic cancer EXAMINATION: MR MRCP W/O Contrast TECHNIQUE: Multiplanar and multisequence MR images of the abdomen were obtained with MRCP sequence. Three-dimensional post-processing reconstructions were performed. IV Contrast Dosage and Agent: None. COMPARISON: 12/18/2021. FINDINGS: Gall Bladder: Postprandial contracted. Normal with no distention or demonstrated fixed intraluminal filling defect. Cystic duct: Normal with no demonstrated fixed filling defect. Intrahepatic ducts: Normal visualized intrahepatic ducts with no demonstrated fixed filling defect, dilation or stricture. Common hepatic duct: Normal with no demonstrated fixed filling defect, dilation or stricture. Common bile duct: Normal with no demonstrated fixed filling defect, dilation or stricture. Pancreatic duct: Normal with no demonstrated fixed filling defect, dilation or stricture. MRI/MRCP Abdomen without Contrast IMPRESSION: Normal MR Cholangiopancreatography (MRCP). Electronically Signed: Pola Mast MD at 16:41 EST ,
== END | disposition home or self-care (01) ==
LOC: MRI 14:11
PROVIDERS: PCP Internal Medicine; Visit Provider Nurse Practitioner Adult Health
DX: D49.0 Neoplasm of unspecified behavior of digestive system (principal)
CPT/HCPCS: 74181

== ENCOUNTER → 2022-10-01 | Outpatient (CLI) | payer MEDICARE, MEDICAID, SELFPAY ==
--- NOTE | 2022-10-01 09:40 | US_ITS ---
STUDY: ABDOMINAL ULTRASOUND - ELASTOGRAPHY REASON FOR VISIT: Male, 52 years old. Fatty infiltration of the liver. TECHNIQUE: Liver stiffness measurements were obtained on a CASTT RS 85 ultrasound machine using a CA 1-7 probe following the SRU guidelines. 3 measurements were obtained using a 2-D-SWE method. The IQR/M was 16% suggesting a quality data set. TECHNICAL QUALITY: Adequate. COMPARISON: Comparison is made with prior study done earlier today. FINDINGS: Liver: Fatty infiltration of the liver. Median liver stiffness measured 5.2 kPa. US/Elastography Parenchyma/Organ IMPRESSION: Liver stiffness measures 5.2 kPa compatible with F0-F1 (Normal to mild liver fibrosis) Metavir score. Electronically Signed: Morgan Trujillo MD at 11:15 EST ,
--- NOTE | 2022-10-01 09:40 | US_ITS ---
STUDY: ABDOMINAL ULTRASOUND - RIGHT UPPER QUADRANT REASON FOR VISIT: Male, 52 years old fatty liver TECHNIQUE: Ultrasound evaluation of the right upper quadrant was performed with real-time and static lee-scale imaging. TECHNICAL QUALITY: Adequate. COMPARISON: Comparison is made with prior ultrasound dated 12/26/2021. FINDINGS: Liver: The liver measures 15.4 cm. There is increased echogenicity consistent with fatty infiltration. The bile ducts are within normal limits. There is hepatic color flow. The direction of portal flow is hepatopetal. There is no demonstrated mass lesion. Gallbladder: Normal distended gallbladder. The gallbladder wall measures 1.5 mm. There is a negative sonographic Renner''s sign. There is no pericholecystic fluid. There are no gallstones. A small amount of sludge is seen within the gallbladder lumen. Common Bile Duct (C.B.D.): The common bile duct measures 6.8 mm. Pancreas: There is nonvisualization of the pancreas due to overlying bowel gas. Right Kidney: Normal size of the right kidney. The right kidney measures 11 cm x 7 cm x 5.7 cm. Normal renal cortex. The right cortex measures 2.1 cm. There is no demonstrated renal mass or cyst. There is no right hydronephrosis. US/Abdomen Limited IMPRESSION: Fatty infiltration of the liver. Small amount of sludge is seen in the gallbladder lumen. Electronically Signed: Morgan Trujillo MD at 11:13 EST ,
== END | disposition home or self-care (01) ==
LOC: US 09:40
PROVIDERS: PCP Internal Medicine; Visit Provider Nurse Practitioner Adult Health
DX: K76.0 Fatty (change of) liver, not elsewhere classified (principal)
CPT/HCPCS: 76705; 76981

== ENCOUNTER 2022-12-11 15:00 | Outpatient (RCR) | payer MEDICARE, MEDICAID, SELFPAY ==
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
--- NOTE | 2022-10-28 13:28 | HP.PTREVAL ---
GERMÁN MEZA, It has been my pleasure to treat LETY HERNANDEZ over the last 9 visits for LUMBAR RADICULOPATHY. Please see the progress note below for an update on the physical therapy plan of care! Subjective: FOLLOW UP WITH DR. HARRY ONE WEEK AGO 10/21/22. PATIENT BROUGHT NEW ORDER TO CONTINUE PT. SAME RESTRICTIONS. NO X-RAYS PER PATIENT REPORT. PRESCRIBED LYRICA WHICH PATIENT STATES HE STARTED BUT HASN'T SEEN ANY RESULTS YET. PATIENT REPORTS CURRENTLY HE IS HAVING TIN LOW BACK PAIN. TIN HIP PAIN R > LEFT ( AFTER SURGERY L>R HIP), TIN THIGH PAIN R > L, TIN CALF PAIN AND TIN FOOT PAIN R > L. L FOOT TINGLING WHICH WAS THERE BEFORE SX TOO. PATIENT REPORTS THE PAIN STARTED FOR NO APPARENT REASON SOME TIME AFTER Sep. DENIES PAIN DURING 10/06/22 PT VISIT AND DENIES INCREASED PAIN DURING 10/13/22 PT VISIT BUT PAIN INCREASE IN PAIN HAS NOT SUBSIDED. PATIENT DENIES ANY NEW FUNCTIONAL PROBLEMS IN HIS LEGS BUT STATES THAT HE JUST HAS PAIN. PATIENT REPORTS THAT NONE OF THESE PAINS ARE NEW AND THAT IN THE PAST WHEN HE WOULD GET THESE PAINS DOWN HIS LEGS HE WOULD GET SHAKIRA'S BY DR. COMER AND GET 75% BENEFIT FOR ABOUT 3-6 ,MONTHS. PATIENT REPORTS HIS FUNCTION BEING ABOUT 60 TO 70% BETTER BUT HIS PAIN IS WORSE. Objective/Function: PATIENT WAS SEEN TODAY FOR RE-ASSESSMENT OF PROGRESS TOWARD THE SET PT GOALS AND THE NEED FOR FURTHER PHYSICAL THERAPY VS READINESS FOR DISCHARGE. PATIENT IS REPORTING INCREASED PAIN. DISCUSSED POSSIBLE BENEFITS OF AQUATIC THERAPY WITH PATIENT AND HE WAS ENTHUSIASTICALLY AGREEABLE REPORTING HE HAS DONE AQUATIC THERAPY IN THE PAST. UPON EXAM TODAY: PATIENT HAS INCREASED LUMBAR FLEXION ROM. THIS PATIENT AMBULATES INDEP'LY INTO PT TODAY WITH STRAIGHT CANE X > 200 FEET WITHOUT LOB. HE HIKES TIN HIPS AND RIGHT KNEE DOES NOT BEND. L LE LONGER THAN R. Sensory deficit: DECREASED L LATERAL THIGH, LEG AND FOOT LIGHT TOUCH COMPARED TO RIGHT. ROM deficit: TIN FOOT DROP WITH TIGHT GASTROC SOLEUS COMPLEXES. RIGHT KNEE LOCKED IN EXTENSION. Motor deficit: TIN FOOT DROP. B HIPS 4+/5, L KNEE 5/5. PATIENT DENIES INCREASED PAIN WITH TESTING. Dural Signs: NEGATIVE TIN LE'S. Lumbar mvmt loss: flex - MIN - REINFORCED TO PATIENT NOT TO DO ANY DEEP BENDING. ext - ERIBERTO. R SG - ERIBERTO. L SG - ERIBERTO. PATIENT DENIES INCREASED PAIN WITH TESTING. Core strength: POOR. Palpation: LUMBAR INCISION LOOKS GOOD WITHOUT ANY SIGNS OF INFECTION OR OPEN AREAS. TENDERNESS WITH PALPATION OF TIN LE'S THROUGHOUT R>L. OTHER: NEGATIVE TIN LE HOMANS SIGNS BUT DISCUSSED SX'S OF BLOOD CLOTS WITH PATIENT AND THE NEED FOR URGENT MEDICAL ATTENTION IF SX'S DEVELOP. HE REPORTS UNDERSTANDING DUE TO HISTORY OF 3 BLOOD CLOTS IN L LE. AFTER DISCUSSION PATIENT REPORTS HIS NURSE FROM [facility] CHECKED HIM FOR TIN LE BLOOD CLOTS WHEN SHE CAME TO HIS HOME YESTERDAY AND THE TESTS WAS OK. Plan Plan: RESTRICTIONS: NO LIFTING > 20-25 LBS. NO REPETITIVE OR DEEP BENDING, LIFTING OR TWISTING. OK TO WEAN OUT OF BACK BRACE. TRIAL OF AQUATIC THERAPY. START VERY VERY SLOW. MONITOR CLOSELY FOR INCREASED PAIN AND AVOID INCREASED PAIN. ISOMETRIC CORE STRENGTHENING. LIGHT LUMBAR ROM. LOWER BODY ROM, STRETCHING AND STRENGTHENING INCLUDING HIP ABDUCTOR STRENGTHENING. INSTRUCTION IN PROPER BODY MECHANICS FOR LIFTING AND PROPER POSTURE CONTROL. Balance/Gait/Functional tests - Balance/Special Test Scores Oswestry Low Back Score: 24 TUG Test Time Seconds: 18.91 Tug Test: <20 sec.=mostly independent 30 Second Chair Rise Test Seconds: 6 Goals Goal 1:: DECREASE C/O LOW BACK AND LE SX'S. Goal Time Frame: 4-6 Weeks Goal Progress: Not Progressing Goal 2:: IMPROVE PERSONAL CARE, LIFTING, WALKING, STANDING, SLEEP, SOCIAL LIFE, TRAVEL AND ADL/HOMEMAKING FUNCTION Goal Time Frame: 4-6 Weeks Goal Progress: SLOW PROGRESS Goal 3:: INSTRUCT IN PROPHYLAXIS Goal Time Frame: 4-6 Weeks Goal Progress: Not Progressing Anticipated Interventions Patient/Client Instruction: Educate patient on: Condition, Plan of Care, Risk Factors For the Purpose of:: To improve self management Therapeutic Exercise to Include: Strength training, Body mechanics, Postural training, Flexibilty training, Neuromotor development, In an aquatic setting, Dynamic Lumbar Stabilization For the Purpose of:: To decrease pain, To increase ROM, To improve muscle performance and motor function, To increase tolerance to activity/condition/position, To improve ability of physical actions for home/community/work/leisure Please do not hesitate to contact me at [phone] by phone or if you have questions or concerns regarding this new plan of care! Sincerely, Marlene Cook, PT, Cert MDT
--- NOTE | 2022-12-11 15:50 | HP.PTDCSUM ---
It has been my pleasure to treat LETY HERNANDEZ referred by GERMÁN MEZA, with the diagnosis of LUMBAR RADICULOPATHY for a total of 16 visit(s). Discharge Date: Please see the following information for a summary of their discharge status. Subjective: PATIENT REPORTS HE IS DOING ABOUT THE SAME HE WAS AT HIS LAST PT RE-CHECK. STATES HE HASN'T BEEN COMPLIANT WITH HOME EX INSTRUCTIONS - I LACK IN THAT. REPORTS HE DOESN'T HAVE A FOLLOW UP MENDEZ'T SCHEUDLED WITH SURGEON AT THIS POINT. PATIENT REPORTS HE LIKES THE WATER EX MUCH BETTER THAN THE LAND EX BECAUSE HE FEELS HE CAN WORK AND RELAX HIS BACK BETTER. Lower back Pain Intensity (Out of 10): 4 BLE Pain Intensity (Out of 10): 4 % Improvement: 65 Objective/Function: PATIENT WAS SEEN TODAY FOR RE-ASSESSMENT OF PROGRESS TOWARD THE SET PT GOALS AND THE NEED FOR FURTHER PHYSICAL THERAPY VS READINESS FOR DISCHARGE. PATIENT IS REPORTING NO OVER-ALL CHANGE IN SX'S AND OBJECTIVELY WITH TESTING THERE IS NO SIGNIFICANT CHANGE. ALSO NO CHANGE IN OSWESTRY SCORE. HE IS INDEP WITH A POOL EX PROGRAM. HE REPORTS HE IS A MEMBER OF THE [facility] AND PLANS TO CONTINUE WATER EX THERE. ENCOURAGED PATIENT TO FOLLOW UP WITH SURGEON PER GENESIS RECOMMENDATIONS. PATIENT IS AGREEABLE. THIS PATIENT AMBULATES INDEP'LY INTO PT TODAY WITHOUT ANY AD'S X > 200 FEET WITHOUT LOB. HE HIKES TIN HIPS AND RIGHT KNEE DOES NOT BEND. L LE LONGER THAN R. Sensory deficit: DECREASED L LATERAL THIGH, LEG AND FOOT LIGHT TOUCH COMPARED TO RIGHT. ROM deficit: TIN FOOT DROP WITH TIGHT GASTROC SOLEUS COMPLEXES. RIGHT KNEE LOCKED IN EXTENSION. Motor deficit: TIN FOOT DROP. B HIPS 4+/5, L KNEE 5/5. PATIENT DENIES INCREASED PAIN WITH TESTING. Dural Signs: NEGATIVE TIN LE'S. Lumbar mvmt loss: flex - MIN - REINFORCED TO PATIENT NOT TO DO ANY DEEP BENDING. ext - ERIBERTO. R SG - ERIBERTO. L SG - ERIBERTO. PATIENT DENIES INCREASED PAIN WITH TESTING. Core strength: POOR Goal 1:: DECREASE C/O LOW BACK AND LE SX'S. Goal Progress: Not Progressing Goal 2:: IMPROVE PERSONAL CARE, LIFTING, WALKING, STANDING, SLEEP, SOCIAL LIFE, TRAVEL AND ADL/HOMEMAKING FUNCTION Goal Progress: Not Progressing Goal 3:: INSTRUCT IN PROPHYLAXIS Goal Progress: Goal Met Plan: D/C TO INDEP WATER EX AT [facility]. PATIENT IS AGREEABLE. If there are questions or concerns regarding this patient's physical therapy, please feel free to call me at [phone]. Thank you for the referral of this patient. Sincerely, Marlene Cook, PT, Cert MDT Balance/Gait/Functional tests - Balance/Special Test Scores Oswestry Low Back Score: 23 TUG Test Time Seconds: 18.91 Tug Test: <20 sec.=mostly independent 30 Second Chair Rise Test Seconds: 6
== END 2022-12-11 19:00 | disposition home or self-care (01) ==
LOC: PT 15:00
PROVIDERS: PCP Internal Medicine
DX: M54.16 Radiculopathy, lumbar region (principal)
CPT/HCPCS: 97110; 97113; 97162; 97164

== ENCOUNTER → 2023-03-01 | Outpatient (CLI) | payer MEDICARE, MEDICAID, SELFPAY ==
[2023-03-01 13:05] LABS: Erythrocyte Sedimentation Rate 12 mm/hr (0-20)
[2023-03-01 13:07] LABS: Absolute Lymphocyte Count 1.09 X10^3/uL (0.83-4.51); Absolute Neutrophil Count 4.1 X10^3/uL (2.0-7.7); Basophil# 0.04 X10^3/uL; Basophil% 0.7 % (0-1); Eosinophil# 0.06 X10^3/uL; Hematocrit 50.2 % (40-54); Hemoglobin 15.8 g/dL (13.0-16.5); Lymphocyte # 1.09 X10^3/ul (0.83-4.51); Lymphocyte % 18.3 % (19-41); Mean Corp Hgb Conc 31.5 g/dL (32-36); Mean Corpuscular Hgb 28.4 pg (27.0-32.0); Mean Corpuscular Volume 90.1 fL (80-94); Mean Platelet Vol. 9.2 fl (6.2-12.0); Monocyte# 0.63 X10^3/uL; Monocyte% 10.6 % (0-10); NRBC Flagged by Analyzer 0 % (0-5); Neutrophil # 4.12 X10^3/uL (2.7-7.7); Neutrophil % 69.1 % (47-70); Platelet Count 346 K/mm3 (150-450); RBC Distribution Width SD 50.1 fl (35.1-43.9); Red Blood Count 5.57 M/mm3 (4.6-6.2)
[2023-03-01 13:34] LABS: ALB/GLOB Ratio 1.2 RATIO (0.9-2.4); AST(SGOT) 28 U/L (15-37); Alanine Aminotransfer ALT/SGPT 44 U/L (16-61); Albumin, Serum 3.9 g/dL (3.2-5.0); Alkaline Phosphatase 114 U/L (45-117); Anion Gap 3 (5-15); BUN 12 mg/dL (7-18); CRP 6.16 mg/L (0.0-3.0); Calcium,Total 9.2 mg/dL (8.5-10.1); Chloride 109 mmol/L (98-107); Creatinine, Serum 0.92 mg/dL (0.70-1.30); EST Glomerular Filtration Rate 91 mL/min (>60); Est Glom Filt Rate - Afr Amer 110 mL/min (>60); Globulin 3.3 g/dL (2.2-4.2); Glucose 98 mg/dL (74-106); LDH 210 U/L (87-241); Potassium 3.9 mmol/L (3.5-5.1); Protein, Total 7.2 g/dL (6.4-8.2); Sodium Level 140 mmol/L (136-145)
[2023-03-02 16:10] LABS: Anti-Centromere B Ab <0.2 AI (0.0-0.9); Anti-Chromatin <0.2 AI (0.0-0.9); Anti-Jo <0.2 AI (0.0-0.9); Anti-Scleroderma-70 AB <0.2 AI (0.0-0.9); Anti-dsDNA Ab 1 IU/mL (0-9); RNP Ab <0.2 AI (0.0-0.9); SJOGREN'S Anti-SS-A test < 0.2 AI (0.0-0.9); SJOGREN'S Anti-SS-B test < 0.2 AI (0.0-0.9); Smith Ab <0.2 AI (0.0-0.9)
[2023-03-04 14:10] LABS: Albumin 3.9 g/dL (2.9-4.4); Alpha-1-Globulins 0.2 g/dL (0.0-0.4); Alpha-2-Globulins 0.7 g/dL (0.4-1.0); Cytoplasmic Ab (C-ANCA) <1:20 titer (Neg:<1:20); Endomysial Antibody IgA Negative (Negative); Gamma Globulin 0.5 g/dL (0.4-1.8); Immunoglobulin A 149 mg/dL (90-386); Immunoglobulin E 41 IU/mL (6-495); Immunoglobulin G 597 mg/dL (603-1613); Immunoglobulin M 28 mg/dL (20-172); PROEL- TOTAL PROTEIN 6.4 g/dL (6.0-8.5); Perinuclear Ab (P-ANCA) <1:20 titer (Neg:<1:20); t-Transglutaminase IgA <2 U/mL (0-3)
== END | disposition home or self-care (01) ==
PROVIDERS: PCP Internal Medicine; Referring Provider Internal Medicine Gastroenterology; Visit Provider Internal Medicine Gastroenterology
DX: R14.0 Abdominal distension (gaseous) (principal)
CPT/HCPCS: 36415; 80053; 82784; 82785; 83516; 83615; 84165; 85025; 85652; 86140; 86225; 86235; 86255; 86256; 86334

== ENCOUNTER → 2023-03-04 | Outpatient (CLI) | payer MEDICARE, MEDICAID, SELFPAY ==
[2023-03-06 00:06] LABS: Calprotectin, Stool 41 ug/g (0-120)
== END | disposition home or self-care (01) ==
LOC: LABSPEC 11:41
PROVIDERS: PCP Internal Medicine; Referring Provider Internal Medicine Gastroenterology; Visit Provider Internal Medicine Gastroenterology
DX: R14.0 Abdominal distension (gaseous) (principal)
CPT/HCPCS: 83630; 83993

== ENCOUNTER → 2025-06-13 | Outpatient (CLI) | payer MEDICARE, MEDICAID, SELFPAY ==
--- NOTE | 2025-06-13 14:17 | MRI_ITS ---
PROCEDURE: MRI/MRI Abd WITH and W/O Contrast
--- NOTE | 2025-06-13 14:18 | MRI_ITS ---
PROCEDURE: MRI/Lower Ext Joint Only (Routine)
== END | disposition home or self-care (01) ==
LOC: MRI 14:04
PROVIDERS: PCP Internal Medicine Infectious Disease; Referring Provider Clinical Nurse Specialist Adult Health; Visit Provider Clinical Nurse Specialist Adult Health
DX: M16.52 Unilateral post-traumatic osteoarthritis, left hip (principal)
CPT/HCPCS: 73721; 74183; A9575; A4216

== ENCOUNTER → 2025-06-22 | Outpatient (CLI) | payer MEDICARE, MEDICAID, SELFPAY ==
--- NOTE | 2025-06-22 16:12 | CT_ITS ---
PROCEDURE: CT/Abdomen/Pelvis WITH Contrast
== END | disposition home or self-care (01) ==
LOC: CT 16:08
PROVIDERS: PCP Internal Medicine Infectious Disease; Referring Provider Internal Medicine Gastroenterology; Visit Provider Internal Medicine Gastroenterology
DX: R14.0 Abdominal distension (gaseous) (principal)
CPT/HCPCS: 74177; Q9967

== ENCOUNTER → 2025-07-30 | Outpatient (CLI) | payer MEDICARE, MEDICAID, SELFPAY ==
--- NOTE | 2025-07-30 10:32 | MRI_ITS ---
PROCEDURE: LOWER EXT JOINT ONLY (ROUTINE) 07/30/2025 REASON FOR EXAM: UNILATERAL POST-TRAMATIC OSTEOARTHRITIS TECHNIQUE: Procedure Code: MRILEJ Modality: MR Procedure: LOWER EXT JOINT ONLY (ROUTINE) T1, T2, stir, multiplanar and multisequence images were obtained of the right hip without IV contrast administration. COMPARISON: COMPARISON : June 13, 2025 FINDINGS: Bone marrow and osseous structures: There is no abnormal marrow edema to suggest stress reaction or fracture. There is no MR evidence of avascular necrosis. Articular cartilage: No significant joint space narrowing. No full or partial- thickness cartilage defects are identified. Labrum: No discrete labral tear or paralabral cyst. Hip joint: There is no intra-articular body. The ligamentum teres is unremarkable. Hip abductors: The gluteus medius and minimus tendons are intact without tendinosis or tear. Iliopsoas tendon: Intact without tendinosis or tear. No iliopsoas bursitis. MRI/Lower Ext Joint Only (Routine) IMPRESSION: There is no visible acute traumatic injury. There is no significant degenerati ve change. Reading Location: [facility]
== END | disposition home or self-care (01) ==
LOC: MRI 10:30
PROVIDERS: PCP Internal Medicine Infectious Disease; Referring Provider Clinical Nurse Specialist Adult Health; Visit Provider Clinical Nurse Specialist Adult Health
DX: M16.51 Unilateral post-traumatic osteoarthritis, right hip (principal)
CPT/HCPCS: 73721